=== PATIENT | female | born 1985 | race Caucasian/White ===

== ENCOUNTER 2017-08-03 18:20 | Emergency (ER) | payer OTHER ==
[~2017-08-03] VITALS: Ht 162.6 cm; Wt 64.5 kg
[2017-08-03 20:16] VITALS: BP 94/57
== END 2017-08-03 20:16 | disposition home or self-care (01) ==
LOC: ED 18:20
DX: O26.892 Other specified pregnancy related conditions, second trimester (principal); G44.209 Tension-type headache, unspecified, not intractable; Z3A.15 15 weeks gestation of pregnancy

== ENCOUNTER 2018-03-10 19:27 | Emergency (ER) | payer OTHER ==
[~2018-03-10] VITALS: Ht 160 cm; Wt 70.3 kg
[2018-03-10 19:40] VITALS: Ht 160 cm; Wt 70.3 kg
[2018-03-10 21:30] VITALS: BP 121/77
== END 2018-03-10 21:30 | disposition home or self-care (01) ==
LOC: ED 19:27
DX: M79.645 Pain in left finger(s) (principal)
CPT/HCPCS: Q0092